=== PATIENT | male | born 1975 | race Caucasian/White ===

== ENCOUNTER 2020-05-19 14:15 | Emergency (ER) | payer OTHER, SELFPAY ==
--- NOTE | ~2020-05-19 | CT_ITS ---
EXAMINATION: CT THORACIC AND CT LUMBAR SPINE WITHOUT CONTRAST CLINICAL INFORMATION: Status post fall. Concern for compression fracture. COMPARISON: Lumbar spine x-ray 01/22/2008 TECHNIQUE: 2 mm thin axial and reformatted 2 mm thin sagittal and coronal images of thoracic and lumbar spine were obtained. DLP: 1501 mGy-cm FINDINGS: Thoracic Spine: There is maintained thoracic kyphosis. The vertebral heights and alignment is normal. There is mild loss of disc height virtually at all thoracic disc levels. There is endplate sclerosis at most of the disc levels. No acute fracture or lytic process seen. There is no evidence of disc bulge, herniation or spinal stenosis at any of the disc levels. The paravertebral soft tissues are normal. Visualized thyroid lobes and the tracheal airway is widely patent. Visualized lung apices in the posterior segments of left upper lobe and lower lobe are normal. No abnormality seen in posterior mediastinum. Lumbar Spine: There is normal lumbar lordosis. There is mild superior endplate deformity L1 vertebra. Otherwise rest of the vertebral heights and alignment is normal. There is loss of L5-S1 disc height with vacuum disc phenomena. Rest of the disc heights are normal. There is no evidence of disc bulge, herniation or spinal stenosis at any of the disc levels. Neural foramina are patent bilaterally at all disc levels. There is 5 mm radiopaque calculi upper/midpole medial cortex left kidney. No hydronephrosis seen. CT/CT thoracic spine wo con IMPRESSION: No acute fracture, dislocation thoracic or lumbar spine except for mild superior endplate deformity L1 vertebra. Correlate with clinical exam if patient has tenderness at L1 vertebra. If patient does have tenderness recommend MRI or bone scan. There are degenerative disc changes L5-S1 disc level with vacuum disc phenomena.
[2020-05-19 14:26] VITALS: BP 191/87; PULSE 88; RESP 17; TEMP 36.6; O2SAT 98; BMI 27.3
[2020-05-19 14:36] VITALS: BP 140/81; PULSE 90; O2SAT 98
--- NOTE | 2020-05-19 14:51 | ED.FALL ---
HPI - Fall General Chief Complaint: Fall Stated Complaint: FALL LOWER BACK PAIN Time Seen by Provider: 05/19/20 14:28 Source: patient and EMS Mode of arrival: EMS Limitations: no limitations History of Present Illness HPI Narrative: 44 y/o male with history of HTN, restless leg syndrome, prior back surgery on L5/S1 who presents to the ER via EMS c/o middle and lower back pain after he fell off of a 7 foot ladder while at work today. 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 He fell onto a work surface and had instant pain in his back. He lost his breath and had numbness and tingling in his entire body which resolved after about 1 minute. He was able to slowly sit up and get up. He did not hit his head or lose consciouness. He has no numbness or tingling at this time. He feels like his back is in complete spasm and he is in pain whenever he moves. The pain is in his middle and lower back with radiation down his right leg. He has had no incontinence. He is able to walk slowly. He received 100 mcg IM Fentanyl en route with EMS. complaint: fall Onset (ago): hour(s) (1) Fall from: from height (distance) (7 feet) Fall witnessed: yes, by bystander Place fall occurred: work Loss of consciousness: none Prolonged down time: no Symptoms prior to fall: none Context: other (lost balance on a ladder) Location of injury: back Severity: severe Quality: aching, spasming and throbbing Associated symptoms (after fall): denies Related Data Previous Rx's Medication Instructions Recorded ropinirole 0.5 mg tablet 0.5 mg PO BEDTIME #30 tab 12/24/19 zaleplon 5 mg capsule 5 mg PO BEDTIME 30 Days #30 cap 01/22/20 lisinopril 5 mg tablet 5 mg PO DAILY #90 tab 03/22/20 cyclobenzaprine 10 mg PO TID PRN #12 tab 05/19/20 ibuprofen 600 mg PO Q8H PRN #20 tab 05/19/20 Allergies Allergy/AdvReac Type Severity Reaction Status Date / Time No Known Allergies Allergy Unverified 11/06/19 15:20 [No Known Allergies*] Review of Systems Review of Systems: Constitutional: No Fever, No Chills ENT/Mouth: No sore throat, No Rhinorrhea, No Swallowing Difficulty Eyes: No Eye Pain, No Swelling, No Redness Cardiovascular: No Chest Pain, No SOB, No Orthopnea, No Edema Respiratory: No Cough, No Sputum, No Wheezing, No dyspnea Gastrointestinal: No Nausea, No Vomiting, No Diarrhea, No abdominal Pain Genitourinary: No Dysuria, No Urinary Frequency, No Hematuria Musculoskeletal: + joint pain, + Myalgias Skin: No Skin Lesions, No rash Neuro: No Weakness, No Numbness, No Dizziness, No Headache Psych: No Anxiety/Panic, No Depression Heme/Lymph: No Bruising, No Lymphadenopathy Endocrine: No Polyuria, No Polydipsia PMFSH Past Medical History Attestation statement: The following information was validated with the patient. Medical History Fusion of lumbar spine High cholesterol HTN (hypertension) Social History Social History Advance Directives: No Advance Directives Information Provided: No Physical Exam Vital Signs: Vital Signs: Last Vital Signs Temp 98.8 F 05/19/20 16:36 Pulse 91 05/19/20 16:36 Resp 18 05/19/20 16:36 BP 132/78 05/19/20 16:36 Pulse Ox 92 05/19/20 16:36 Body Mass Index 27.3 Appearance: Alert. Oriented X3. No acute distress. Eyes: Pupils equal, round and reactive to light. ENT: Pharynx normal. Neck: Normal inspection. Neck supple. CVS: Normal heart rate and rhythm. Pulses normal. Respiratory: No respiratory distress. Breath sounds normal. Abdomen: Soft and nontender. +BS x4 Back: spinal tenderness from lower thoracic area to middle lumbar area with paraspinal muscle tenderness and spasm. no ecchymosis. Limited flexion of spine due to pain Skin: Skin warm and dry. Normal skin color. Normal skin turgor. No rashes. Extremities: No lower extremity edema. Atruamatic. Neuro: Oriented X 3. No motor deficit. No sensory deficit. Able to walk with slow but steady gait Course Course Course Narrative: 44 y/o male presenting with back pain after he fell off a ladder at 7 feet. He has middle and lower back pain. Neurologically intact at this time. Will get CT scan to assess for traumatic injuries. Reevaluation(s) Reevaluation #1: CT scan showing: No acute fracture, dislocation thoracic or lumbar spine except for mild superior endplate deformity L1 vertebra. Correlate with clinical exam if patient has tenderness at L1 vertebra. If patient does have tenderness recommend MRI or bone scan. There are degenerative disc changes L5-S1 disc level with vacuum disc phenomena. He is feeling much better after medications. He has no neurologic deficits on examination. Up to the bathroom twice without difficutly. Case was d/w Dr. Diaz who agreed this can be done as an outpatient. He agrees with plan. He is stable for discharge. Discharge Plan Discharge Clinical Impression: Back pain due to injury Fall from ladder Qualifiers: Encounter type: initial encounter Qualified Code(s): W11.XXXA - Fall on and from ladder, initial encounter Patient Disposition: Home, Self-Care Instructions: Low Back Strain (ED), Acute Low Back Pain (ED) Additional Instructions: Your CT scan today showed NO acute fracutres but possible mild deformity of L1 vertebrae. Recommend follow up with an MRI. No bending, lifting or twisting. Use ice several times per day for 20 minutes at a time for the next 48 hours and then change to heat. Take medications as prescribed to help with pain and discomfort. Follow up with your Primary Care Doctor this week. If your pain worsens, if you develop new numbness, tingling, weakness, loss of function or incontinence call 911 or come back to the ER right away for evaluation. Prescriptions: New cyclobenzaprine 10 mg tablet 10 mg PO TID PRN (Reason: muscle spasm) Qty: 12 RF: 0 ibuprofen 600 mg tablet 600 mg PO Q8H PRN (Reason: pain) Qty: 20 RF: 0 No Action ropinirole 0.5 mg tablet 0.5 mg PO BEDTIME Qty: 30 RF: 2 zaleplon 5 mg capsule 5 mg PO BEDTIME 30 Days Qty: 30 RF: 1 lisinopril 5 mg tablet 5 mg PO DAILY Qty: 90 RF: 0 Referrals: [facility] [Provider Group] - 2 days Stand Alone Forms: Work/School Release
[2020-05-19] MEDS: Ketorolac Tromethamine 60 MG/2 ML VIAL IM (15:17)
[2020-05-19] MEDS: oxyCODONE HCl Immed Release 5 MG TABLET PO (15:17)
[2020-05-19] MEDS: Acetaminophen 325 MG TABLET 975 MG PO (15:17)
[2020-05-19 16:36] VITALS: BP 132/78; PULSE 91; RESP 18; TEMP 37.1; O2SAT 92
== END 2020-05-19 17:24 | disposition home or self-care (01) ==
PROVIDERS: Emergency Provider Emergency Medicine; PCP Nurse Practitioner Family
DX: S39.92XA Unspecified injury of lower back, initial encounter (principal); M54.6 Pain in thoracic spine; I10 Essential (primary) hypertension; W11.XXXA Fall on and from ladder, initial encounter; Y93.9 Activity, unspecified; Y92.9 Unspecified place or not applicable; Y99.0 Civilian activity done for income or pay; Z79.899 Other long term (current) drug therapy
CPT/HCPCS: 72128; 72131; 96372; 99283; 99284; J1885

== ENCOUNTER → 2020-05-24 07:39 | Outpatient (BNVA) | payer OTHER, SELFPAY | PROVIDERS: PCP Nurse Practitioner Family; Visit Provider Internal Medicine | DX: S20.22 Contusion of back wall of thorax (principal); S30.0XXD Contusion of lower back and pelvis, subsequent encounter; W01.0XXD Fall on same level from slipping, tripping and stumbling without subsequent striking against object, subsequent encounter | CPT/HCPCS: 99203 ==

== ENCOUNTER 2020-05-26 15:44 | Outpatient (REF) | payer OTHER, SELFPAY ==
--- NOTE | ~2020-05-26 | MR_ITS ---
EXAMINATION: MR LUMBAR SPINE WITHOUT CONTRAST CLINICAL INFORMATION: Lower back pain with right leg pain and numbness. COMPARISON: Lumbar spine CT dated 05/19/2020 and lumbar spine MRI dated 02/04/2008. TECHNIQUE: MRI of the lumbar spine was obtained using routine sequences without contrast. FINDINGS: VERTEBRAL BODIES AND PARASPINAL STRUCTURES: Normal vertebral body alignment. The lumbar lordosis is maintained. Acute/subacute superior endplate fracture at the anterior aspect of the L1 vertebral body with associated marrow edema. The anterior vertebral body height measures approximately 1.9 cm and the posterior vertebral body height measures approximately 2.9 cm. No additional loss of vertebral body height. Loss of intervertebral disc height with disc desiccation at L5-S1 and to a lesser degree at L4-L5. No additional abnormal marrow signal. Redemonstration of a left renal cyst and adjacent stone, unchanged. Otherwise, the visualized paraspinal soft tissues are unremarkable. CONUS MEDULLARIS AND CAUDA EQUINA: Normal, terminating at the level of L1. SPINAL LEVELS: T12-L1: No significant disc bulge. No central canal or neural foraminal stenosis. L1-L2: Shallow left subarticular disc protrusion causing mild left neural foraminal stenosis. Findings are similar when compared to the prior MRI. L2-L3: Minimal disc bulge with bilateral facet arthropathy. No significant central canal or neural foraminal stenosis. L3-L4: Minimal disc bulge with bilateral facet arthropathy. No significant central canal or neural foraminal stenosis. L4-L5: Mild broad-based disc bulge with bilateral facet arthropathy and thickening of the ligamentum flavum causing mild central canal stenosis and encroaching upon the bilateral traversing L5 nerve roots, left greater than right. Mild bilateral neural foraminal stenosis. Findings are new/increased when compared to the prior MRI. L5-S1: Broad-based disc bulge with bilateral facet arthropathy causing mild bilateral neural foraminal stenosis which has increased when compared to the prior examination. The previously seen right posterior central disc protrusion has nearly completely resolved. MR/MR lumbar spine wo con IMPRESSION: 1. Acute/subacute superior endplate fracture through the anterior aspect of L1 with prominent associated marrow edema. 2. Mild broad-based disc bulge at L4-L5 with bilateral facet arthropathy and thickening of the ligamentum flavum causing mild central canal stenosis and encroaching upon the traversing bilateral L5 nerve roots, left greater than right. Additionally there is mild bilateral neural foraminal stenosis. Findings are new/increased when compared to the prior MRI. 3. Broad-based disc bulge at L5-S1 with bilateral facet arthropathy causing mild bilateral neural foraminal stenosis, increased when compared to the prior examination. Previously seen right posterior central disc protrusion at this level has nearly completely resolved. 4. Stable L1-L2 shallow left subarticular disc protrusion causing mild left neural foraminal stenosis, unchanged.
== END 2020-05-26 15:45 | disposition home or self-care (01) ==
LOC: HO.MRI 15:44
PROVIDERS: Visit Provider Internal Medicine
DX: M54.5 Low back pain (principal); M79.604 Pain in right leg; R20.0 Anesthesia of skin
CPT/HCPCS: 72148

== ENCOUNTER → 2020-05-27 13:48 | Outpatient (BNVA) | payer OTHER, SELFPAY | PROVIDERS: PCP Nurse Practitioner Family; Visit Provider Internal Medicine | DX: S30.0XXD Contusion of lower back and pelvis, subsequent encounter (principal); S40.019D Contusion of unspecified shoulder, subsequent encounter; W11.XXXD Fall on and from ladder, subsequent encounter | CPT/HCPCS: 99214 ==

== ENCOUNTER → 2020-06-03 13:50 | Outpatient (BNVA) | payer OTHER, SELFPAY | PROVIDERS: PCP Nurse Practitioner Family; Visit Provider Physician Assistant Medical | DX: S30.0XXD Contusion of lower back and pelvis, subsequent encounter (principal); S32.010D Wedge compression fracture of first lumbar vertebra, subsequent encounter for fracture with routine healing; X58.XXXD Exposure to other specified factors, subsequent encounter | CPT/HCPCS: 99213 ==

== ENCOUNTER → 2020-08-10 14:47 | Outpatient (BNVA) | payer OTHER, SELFPAY | PROVIDERS: PCP Nurse Practitioner Family; Visit Provider Internal Medicine | DX: S32.019D Unspecified fracture of first lumbar vertebra, subsequent encounter for fracture with routine healing (principal); W11.XXXD Fall on and from ladder, subsequent encounter | CPT/HCPCS: 99213 ==